=== PATIENT | male | born 1940 | race Caucasian/White ===

== ENCOUNTER 2018-11-19 09:48 | Day surgery (SDC) | payer MEDICARE ==
[~2018-11-19 09:48] MED LIST: ASPI-611 PO; CARV6.253 PO; CELE-193 PO; DEXL60CA3 PO; FLAX100031 PO; FURO-150 PO; ISOS30TA6 PO; LISI-604 PO; MELA3TAB PO; NITR0.4T SL; OMEG500C PO; OXYC-658 PO; POTA8TAB3 PO; ROSU20TA PO; SERT100T10 PO; VAL5T PO; [UNRECOGNIZED DRUG - OTHER] PO
[2018-11-19] MEDS ORDERED: FERR325T28 PO (16:19)
[2018-11-19] MEDS ORDERED: VILA40TA PO (16:19)
[2018-11-19] MEDS ORDERED: CLOP75TA15 PO (16:19)
[2018-11-19] MEDS ORDERED: OXYC-150 PO (16:19)
== END 2018-11-19 12:32 | disposition home or self-care (01) ==
LOC: WOUND CARE 09:48
PROVIDERS: ATTEND Surgery
DX: T81.89XD Other complications of procedures, not elsewhere classified, subsequent encounter (principal); E11.622 Type 2 diabetes mellitus with other skin ulcer; L98.412 Non-pressure chronic ulcer of buttock with fat layer exposed; I10 Essential (primary) hypertension; E78.5 Hyperlipidemia, unspecified; E66.01 Morbid (severe) obesity due to excess calories; I25.10 Atherosclerotic heart disease of native coronary artery without angina pectoris; Y83.8 Other surgical procedures as the cause of abnormal reaction of the patient, or of later complication, without mention of misadventure at the time of the procedure
CPT/HCPCS: 11042; A6266; A6212

== ENCOUNTER 2018-11-27 08:30 | Day surgery (SDC) | payer MEDICARE ==
[~2018-11-27 08:30] MED LIST changes: +CLOP75TA15 PO; +FERR325T28 PO; +OXYC-150 PO; -OXYC-658 PO; -ROSU20TA PO; -SERT100T10 PO; +VILA40TA PO
[2018-11-27] MEDS ORDERED: LIDOcaine 2% 5ml jelly MM ONE (14:40)
--- NOTE | 2018-11-27 14:43 | NUR ---
Patient arrived safely into [facility] via wheelchair. Patient admitted to outpatient wound care for physician visit. Dressing removed, wound cleansed and lidocaine applied per order. Patient assessed for changes in conditions, medications and medical history. 0940-Dr. Chaves at bedside accompanied by RN. Wound assessed, time out performed by MD/RN. Wound debrided as detailed in the physician progress/procedure note. Plan of care discussed with patient. Dressings placed per MD orders. Patient instructed on the signs and symptoms of infection and to call the Wound Center if any occur or to go to the ED if we are closed: Increased pain in wound Increase in drainage from the wound Redness in the skin surrounding the wound Bleeding from the wound Temperature of 101 or greater Patient instructed that the weight of their body puts a large amount of pressure on their wounds. This pressure keeps the new tissue from growing and inhibits new blood vessels from forming. Explained that, if they continue to bear weight on a body part that has a wound, the time it takes to heal the wound increases, the wound may get worse or the wound may not heal at all. Patient verbalized understanding of all discharge instructions and plan of care and ambulated independently out to [facility] in stable condition with no sign or symptom of distress at time of discharge. Addendum: 11/27/18 at 1444 by Susy Ware RN Amended: Links added.
== END 2018-11-27 10:29 | disposition home or self-care (01) ==
LOC: WOUND CARE 08:30
PROVIDERS: ATTEND Surgery
DX: T81.89XD Other complications of procedures, not elsewhere classified, subsequent encounter (principal); E11.622 Type 2 diabetes mellitus with other skin ulcer; L98.412 Non-pressure chronic ulcer of buttock with fat layer exposed; I10 Essential (primary) hypertension; E78.5 Hyperlipidemia, unspecified; E66.01 Morbid (severe) obesity due to excess calories; I25.10 Atherosclerotic heart disease of native coronary artery without angina pectoris; Y83.8 Other surgical procedures as the cause of abnormal reaction of the patient, or of later complication, without mention of misadventure at the time of the procedure
CPT/HCPCS: 97597; A6266

== ENCOUNTER 2018-12-04 10:25 | Outpatient (CLI) | payer MEDICARE ==
--- NOTE | 2018-12-04 12:30 | NUR ---
Patient arrived via wheelchair from [facility] and was admitted to outpatient wound care for physician visit with Anurag Chaves MD. Dressing removed, wound cleansed and lidocaine applied per order. Patient assessed for changes in conditions, medications and medical history. 1145 - Dr. Chaves at bedside accompanied by RN. Wound assessed by MD and new orders written. Plan of care discussed with patient. Dressings placed per MD orders. Patient instructed on the signs and symptoms of infection and to call the Wound Center if any occur or to go to the ED if we are closed: Increased pain in wound Increase in drainage from the wound Redness in the skin surrounding the wound Bleeding from the wound Temperature of 101 or greater Patient instructed that the weight of their body puts a large amount of pressure on their wounds. This pressure keeps the new tissue from growing and inhibits new blood vessels from forming. Explained that, if they continue to bear weight on a body part that has a wound, the time it takes to heal the wound increases, the wound may get worse or the wound may not heal at all. Patient verbalized understanding of all discharge instructions and plan of care and exited via wheelchair out to [facility] in stable condition with no sign or symptom of distress at time of discharge. Jaida scott [facility] updated on plan of care and orders faxed addressing their questions about dressing change frequency and activity level.
[2018-12-06] MEDS ORDERED: POTA8CAP9 PO (12:38)
[2018-12-06] MEDS ORDERED: DOCU-28 PO (12:38)
== END 2018-12-04 12:20 | disposition home or self-care (01) ==
LOC: WOUND CARE 10:25
PROVIDERS: ATTEND Surgery
DX: T81.89XD Other complications of procedures, not elsewhere classified, subsequent encounter (principal); E11.622 Type 2 diabetes mellitus with other skin ulcer; L98.412 Non-pressure chronic ulcer of buttock with fat layer exposed; I10 Essential (primary) hypertension; E78.5 Hyperlipidemia, unspecified; E66.01 Morbid (severe) obesity due to excess calories; I25.10 Atherosclerotic heart disease of native coronary artery without angina pectoris; I21.A1 Myocardial infarction type 2; Z68.41 Body mass index [BMI] 40.0-44.9, adult; Y83.8 Other surgical procedures as the cause of abnormal reaction of the patient, or of later complication, without mention of misadventure at the time of the procedure
CPT/HCPCS: A6266; G0463; A6213

== ENCOUNTER 2018-12-06 08:53 | Inpatient (IN) | payer MEDICARE | END 2018-12-14 17:37 | LOC: SUR 3N 12-08 22:02 → ER 08:53 → SUR 3N 12-07 08:50 → ED HOLD 11:53 → PCU 3S 13:05 → SUR 3N 19:00 | DX: T82.6XXA Infection and inflammatory reaction due to cardiac valve prosthesis, initial encounter (principal); A41.01 Sepsis due to Methicillin susceptible Staphylococcus aureus; I21.A1 Myocardial infarction type 2; G93.41 Metabolic encephalopathy; J96.01 Acute respiratory failure with hypoxia; I33.0 Acute and subacute infective endocarditis; E87.1 Hypo-osmolality and hyponatremia; I50.9 Heart failure, unspecified ==

== ENCOUNTER 2018-12-21 08:39 | Emergency (ER) | payer MEDICARE ==
[~2018-12-21] VITALS: Ht 175.3 cm; Wt 143.0 kg
[~2018-12-21 08:39] MED LIST changes: -CELE-193 PO; -DEXL60CA3 PO; +DOCU-28 PO; -FLAX100031 PO; -ISOS30TA6 PO; -OMEG500C PO; +POTA8CAP9 PO; -POTA8TAB3 PO; -VAL5T PO; -[UNRECOGNIZED DRUG - OTHER] PO
[2018-12-21] MEDS ORDERED: LORazepam 2 mg/ml vial IV ONE (08:50)
[2018-12-21] MEDS ORDERED: furosemide 10 MG/1 ML 10ml inj IV ONE (08:50)
[2018-12-21] MEDS ORDERED: morphine 4 MG/ML inj SYRINge IV ONE (08:50)
--- NOTE | 2018-12-21 09:10 | NUR ---
Per Brittany Triplett ok to use PICC line
[2018-12-21 09:29] LABS: BASOPHILS % (AUTO) 0.3 % (0-1); EOSINOPHILS # (AUTO) 0.3 X10'3 (0-0.9); EOSINOPHILS % (AUTO) 2.1 % (0-6); HEMATOCRIT 22.8 % (42.0-52.0); HEMOGLOBIN 7.4 g/dl (14.0-17.9); LYMPHOCYTES # (AUTO) 0.8 X10'3 (1.1-4.8); MEAN CORPUSCULAR HEMOGLOBIN 29.8 PG (27.0-31.0); MEAN CORPUSCULAR HGB CONC 32.3 % (33.0-36.5); MEAN PLATELET VOLUME 6.3 FL (7.4-10.4); MONOCYTES # (AUTO) 0.9 X10'3 (0-0.9); MONOCYTES % (AUTO) 6.9 % (2-12); NEUTROPHILS % (AUTO) 84.7 % (42-75); PLATELET COUNT 313 X10'3 (140-440); RED BLOOD COUNT 2.47 X10'6 (4.70-6.10); RED CELL DISTRIBUTION WIDTH 19.3 % (11.5-14.5)
[2018-12-21 09:37] LABS: ALANINE AMINOTRANSFERASE 15 U/L (12-78); ALBUMIN 1.7 G/DL (3.4-5.0); ALBUMIN/GLOBULIN RATIO 0.4 (1.1-1.5); ALKALINE PHOSPHATASE 59 IU/L (46-116); ANION GAP 11 (8-16); ASPARTATE AMINO TRANSFERASE 14 U/L (10-37); BILIRUBIN,TOTAL 0.5 MG/DL (0.1-1.0); BLOOD UREA NITROGEN 33 MG/DL (7-18); BUN/CREATININE RATIO 17.5 (5.4-32.0); CALCIUM 7.8 MG/DL (8.5-10.1); CHLORIDE 102 MMOL/L (99-107); CREATININE 1.89 MG/DL (0.60-1.10); GLUCOSE 156 MG/DL (70-104); POTASSIUM 3.6 MMOL/L (3.5-5.1); SODIUM 137 MMOL/L (135-145); TOTAL CARBON DIOXIDE 24.4 MMOL/L (24-32); TOTAL PROTEIN 6.3 G/DL (6.4-8.2); eGFR 35 ML/MIN
[2018-12-21 09:40] LABS: PROTHROMBIN TIME 9.8 SECONDS (9.0-12.0)
[2018-12-21 10:43] VITALS: BP 150/90
== END 2018-12-21 10:44 ==
LOC: ER 08:39
DX: R07.89 Other chest pain (principal); I38 Endocarditis, valve unspecified; D64.9 Anemia, unspecified; F41.9 Anxiety disorder, unspecified; R60.0 Localized edema; E66.9 Obesity, unspecified; I11.0 Hypertensive heart disease with heart failure; I50.9 Heart failure, unspecified; E11.9 Type 2 diabetes mellitus without complications; G89.29 Other chronic pain; Z98.890 Other specified postprocedural states; Z88.0 Allergy status to penicillin; Z79.82 Long term (current) use of aspirin; Z79.899 Other long term (current) drug therapy
CPT/HCPCS: 36415; 71045; 80053; 83880; 84484; 85025; 85610; 93005; 93970; 96374; 96375; 99284; J1940; J2060; J2270; 99285

== ENCOUNTER 2018-12-29 12:21 | Inpatient (IN) | payer MEDICARE | END 2019-01-08 22:30 | LOC: PCU 3S 01-03 10:25 → ER 12:21 → ED HOLD 14:59 → ICU 2S 16:15 | PROC: 5A1945Z Respiratory Ventilation, 24-96 Consecutive Hours (ICD-10-PCS; principal; ~2018-12-29) | PROC: 0BH17EZ Insertion of Endotracheal Airway into Trachea, Via Natural or Artificial Opening (ICD-10-PCS; ~2018-12-29) | DX: T82.6XXA Infection and inflammatory reaction due to cardiac valve prosthesis, initial encounter (principal); J96.00 Acute respiratory failure, unspecified whether with hypoxia or hypercapnia; A41.59 Other Gram-negative sepsis; J18.9 Pneumonia, unspecified organism; I38 Endocarditis, valve unspecified; N17.9 Acute kidney failure, unspecified; E66.01 Morbid (severe) obesity due to excess calories; I50.9 Heart failure, unspecified; I11.0 Hypertensive heart disease with heart failure; B95.61 Methicillin susceptible Staphylococcus aureus infection as the cause of diseases classified elsewhere ==

== ENCOUNTER 2019-01-18 10:50 | Outpatient (CLI) | payer OTHER, MEDICARE ==
[~2019-01-18 10:50] MED LIST changes: +CALC355O3 PO; +DIAZ10TA PO; -DOCU-28 PO; -FURO-150 PO; +HYDR-4069 PO; +ISOS30TA9 PO; +LACT1CAP65 PO; -LISI-604 PO; -MELA3TAB PO; +ONDA4TAB6 PO; +OXYC-134 PO; -OXYC-150 PO; +PANT40TA4 PO; +POLY17PO10 PO; +PRAV80TA3 PO; +RIFA150C27 PO; +SENN1TAB6 PO; +SERT50TA PO; -VILA40TA PO; +ZOLP5TAB8 PO; +[UNRECOGNIZED DRUG - CODE] SQ
== END 2019-01-18 23:59 | disposition home or self-care (01) ==
LOC: 64 CT 10:50
PROVIDERS: ATTEND Specialist
DX: I63.89 Other cerebral infarction (principal); R90.82 White matter disease, unspecified; G31.89 Other specified degenerative diseases of nervous system; E11.9 Type 2 diabetes mellitus without complications; I11.0 Hypertensive heart disease with heart failure; I50.9 Heart failure, unspecified; Z79.82 Long term (current) use of aspirin
CPT/HCPCS: 70450